=== PATIENT | male | born 1980 ===

== ENCOUNTER 2020-02-15 13:51 | Emergency (ER) | payer MEDICAID ==
[~2020-02-15] VITALS: Ht 177.8 cm; Wt 72.7 kg
[2020-02-15] MEDS ORDERED: haloperidol lactate 5mg/ml inj IM ONE (14:05)
[2020-02-15] MEDS ORDERED: LORazepam 2 mg/ml vial IM ONE (14:05)
[2020-02-15] MEDS ORDERED: normal saline 1000ML IV soln IVB ONE (14:05)
[2020-02-15] MEDS ORDERED: diphenhydrAMINE 50 mg/ml inj IM ONE (14:05)
[2020-02-15 14:25] LABS: EOSINOPHILS # (AUTO) 0.1 X10'3 (0-0.9); HEMOGLOBIN 11.9 g/dl (14.0-17.9); MEAN CORPUSCULAR HEMOGLOBIN 27.8 PG (27.0-31.0); MONOCYTES # (AUTO) 0.9 X10'3 (0-0.9); NEUTROPHILS # (AUTO) 13.5 X10'3 (1.8-7.7); RED CELL DISTRIBUTION WIDTH 16.1 % (11.5-14.5)
[2020-02-15 14:26] LABS: BASOPHILS # (AUTO) 0.2 X10'3 (0-0.2); BASOPHILS % (AUTO) 1.3 % (0-1); EOSINOPHILS % (AUTO) 0.3 % (0-6); HEMATOCRIT 36.7 % (42.0-52.0); LYMPHOCYTES # (AUTO) 2.5 X10'3 (1.1-4.8); LYMPHOCYTES % (AUTO) 14.8 % (21-51); MEAN CORPUSCULAR HGB CONC 32.5 g/dL (33.0-36.5); MEAN CORPUSCULAR VOLUME 85.4 FL (78-98); MEAN PLATELET VOLUME 6.9 FL (7.4-10.4); MONOCYTES % (AUTO) 5.3 % (2-12); NEUTROPHILS % (AUTO) 78.3 % (42-75); PLATELET COUNT 633 X10'3 (140-440); RED BLOOD COUNT 4.29 X10'6 (4.70-6.10); WHITE BLOOD COUNT 17.2 X10'3 (4.5-11.0)
[2020-02-15] MEDS ORDERED: iohexol 350MG/ML 100ml bottle IV ONE (14:27)
[2020-02-15 14:39] LABS: PARTIAL THROMBOPLASTIN TIME 22 SECONDS (22-32)
[2020-02-15 14:40] LABS: ALANINE AMINOTRANSFERASE 24 U/L (12-78); ALBUMIN 3.5 G/DL (3.4-5.0); ALBUMIN/GLOBULIN RATIO 0.7 (1.1-1.5); ALKALINE PHOSPHATASE 114 IU/L (46-116); ANION GAP 9 (8-16); ASPARTATE AMINO TRANSFERASE 28 U/L (10-37); BILIRUBIN,TOTAL 0.2 MG/DL (0.1-1.0); BLOOD UREA NITROGEN 12 MG/DL (7-18); BUN/CREATININE RATIO 10.4 (5.4-32.0); CALCIUM 8.8 MG/DL (8.5-10.1); CHLORIDE 106 MMOL/L (99-107); CREATINE KINASE 205 U/L (39-308); CREATININE 1.15 MG/DL (0.60-1.10); ETHANOL < 0.010 GM/DL (0.0-0.010); GLUCOSE 128 MG/DL (70-104); POTASSIUM 3.6 MMOL/L (3.5-5.1); SODIUM 140 MMOL/L (135-145); TOTAL CARBON DIOXIDE 25.2 MMOL/L (24-32); TOTAL PROTEIN 8.5 G/DL (6.4-8.2); eGFR 71 ML/MIN
--- NOTE | 2020-02-15 15:00 | NUR ---
back from [place]
[2020-02-15 15:11] LABS: CLARITY,URINE CLEAR (Clear); COLOR,URINE YELLOW (Yellow); GLUCOSE, URINE NEGATIVE (Neg); KETONES,URINE TRACE mg/dl (Neg); LEUKOCYTE ESTERASE ,URINE NEGATIVE (Neg); NITRITES, URINE NEGATIVE (Neg); OCCULT BLOOD,URINE NEGATIVE (Neg); PH,URINE 5.5 (4.8-8.0); PROTEIN,URINE >=300 mg/dl (Neg)
[2020-02-15 15:17] LABS: UA COLLECTION TYPE STRAIGHT CATH
[2020-02-15 15:18] LABS: BACTERIA,URINE NONE SEEN /HPF (Neg); CAL OXALATE CRYSTALS 2+ /HPF (NEGATIVE); MUCUS STRANDS FEW /LPF (Neg); RBC,URINE 0-2 /HPF (0-2); SQUAMOUS EPITHELIAL CELL,UR FEW /LPF (FEW); WBC,URINE 0-4 /HPF (0-4)
[2020-02-15 15:23] LABS: URINE AMPHETAMINE SCREEN POSITIVE (Neg); URINE BARBITUATE SCREEN NEGATIVE (Neg); URINE BENZODIAZEPINES SCREEN NEGATIVE (Neg); URINE CANNABINOID SCREEN NEGATIVE (Neg); URINE COCAINE SCREEN NEGATIVE (Neg); URINE METHADONE SCREEN NEGATIVE (Neg); URINE OPIATE SCREEN POSITIVE (Neg); URINE PHENCYCLIDINE SCREEN NEGATIVE (Neg)
[2020-02-15 15:44] VITALS: BP 110/59
== END 2020-02-15 15:48 ==
LOC: EDBD 13:52 → ER 13:52
DX: S01.81XA Laceration without foreign body of other part of head, initial encounter (principal); S09.90XA Unspecified injury of head, initial encounter; S20.229A Contusion of unspecified back wall of thorax, initial encounter; H10.213 Acute toxic conjunctivitis, bilateral; F15.10 Other stimulant abuse, uncomplicated; Z02.89 Encounter for other administrative examinations; X58.XXXA Exposure to other specified factors, initial encounter; Y93.89 Activity, other specified; Y92.89 Other specified places as the place of occurrence of the external cause; Y99.8 Other external cause status
CPT/HCPCS: 36415; 70450; 70486; 70498; 71250; 72125; 74176; 80053; 80305; 80320; 81001; 82550; 85025; 85610; 85730; 96360; 96372; 99285; J1200; J1630; J2060; J7030; Q9967